=== PATIENT | female | born 1985 | race Caucasian/White ===

== ENCOUNTER → 2016-04-30 | Outpatient (CLI) | payer OTHER | LOC: OD 09:48 | PROVIDERS: ATTEND Obstetrics & Gynecology | DX: R09.81 Nasal congestion (principal); M79.1 Myalgia; R05 Cough | CPT/HCPCS: 87070; 87077; 87804; 87880 ==

== ENCOUNTER 2019-12-20 23:38 | Emergency (ER) | payer SELFPAY ==
[2019-12-21 00:42] LABS: APPEARANCE,URINE SLIGHTLY-CLOUDY; BILIRUBIN,URINE NEGATIVE (NEGATIVE); COLOR,URINE STRAW; GLUCOSE, URINE NEGATIVE (NEGATIVE); KETONES,URINE NEGATIVE (NEGATIVE); LEUKOCYTE ESTERASE,URINE MODERATE (NEGATIVE); NITRITE,URINE NEGATIVE (NEGATIVE); PROTEIN,URINE NEGATIVE (NEGATIVE); UROBILINOGEN,URINE NEGATIVE mg/dL (<2.0)
--- NOTE | 2019-12-21 00:55 | ER Document Report ---
ED Medical Screen (RME) - General Chief Complaint: OB Problem (<20wks) Stated Complaint: VAGINAL BLEEDING-8 WEEKS PREG Time Seen by Provider: 12/21/19 00:51 Primary Care Provider: WESLY SWANSON ARNP [Primary Care Provider] - Follow up as needed Notes: HPI: 34-year-old female who is a G4, at approximately 8 weeks 3 days gestation by dates who follows at the health department presenting for vaginal bleeding tonight. Has had some intermittent pelvic cramping tonight and when she went to the bathroom this evening wiped and saw bright red blood. No clots. Has not yet had ultrasound imaging. PHYSICAL EXAMINATION: exam deferred in triage. No tenderness on palpation across the pelvis. I have greeted and performed a rapid initial assessment of this patient. A comprehensive ED assessment and evaluation of the patient, analysis of test results and completion of medical decision making process will be conducted by an additional ED providers. TRAVEL OUTSIDE OF THE [place] IN LAST 30 DAYS: No - Related Data Allergies/Adverse Reactions: No Known Drug Allergies Allergy (Mild, Verified 11/26/11 08:26) Bee stings Allergy (Unknown, Uncoded 10/01/11 12:29) Home Medications: vitamins Past Medical History - Past Medical History Cardiac Medical History: Denies: Hx Coronary Artery Disease, Hx Heart Attack, Hx Hypertension Pulmonary Medical History: Denies: Hx Asthma, Hx Bronchitis, Hx COPD, Hx Pneumonia Neurological Medical History: Denies: Hx Cerebrovascular Accident, Hx Seizures Musculoskeltal Medical History: Denies Hx Arthritis Past Surgical History: Reports: Hx Appendectomy. Denies: Hx Hysterectomy, Hx Pacemaker - Immunizations Hx Diphtheria, Pertussis, Tetanus Vaccination: Yes Physical Exam - Vital signs Vitals: Temp Pulse Resp BP Pulse Ox 98.2 F 82 16 123/76 99 12/20/19 23:59 12/20/19 23:59 12/20/19 23:59 12/20/19 23:59 12/20/19 23:59 Course - Vital Signs Vital signs: Temp Pulse Resp BP Pulse Ox 98.2 F 82 16 123/76 99 12/20/19 23:59 12/20/19 23:59 12/20/19 23:59 12/20/19 23:59 12/20/19 23:59 - Laboratory Laboratory results interpreted by me: 12/21/19 00:05 Urine Blood LARGE H Ur Leukocyte Esterase MODERATE H Urine HCG, Qual POSITIVE H Doctor's Discharge - Discharge Referrals: WESLY SWANSON ARNP [Primary Care Provider] - Follow up as needed
[2019-12-21 01:23] LABS: ABSOLUTE BASOPHILS # (AUTO) 0.1 10^3/uL (0.0-0.2); ABSOLUTE EOSINOPHILS # (AUTO) 0.6 10^3/uL (0.0-0.6); ABSOLUTE LYMPHOCYTES (AUTO) 2.5 10^3/uL (0.5-4.7); ABSOLUTE MONOCYTES (AUTO) 0.6 10^3/uL (0.1-1.4); ABSOLUTE NEUT (AUTO) 6.5 10^3/uL (1.7-8.2); BASOPHILS % (AUTO) 0.8 % (0-2); EOSINOPHILS % (AUTO) 6.1 % (0-6); HEMATOCRIT 38.5 % (36.0-47.0); HEMOGLOBIN 13.1 g/dL (12.0-15.5); LYMPHOCYTES % (AUTO) 24.1 % (13-45); MEAN CORPUSCULAR HEMOGLOBIN 29.5 pg (27.0-33.4); MEAN CORPUSCULAR VOLUME 87 fl (80-97); MONOCYTES % (AUTO) 5.9 % (3-13); PLATELET COUNT 337 10^3/uL (150-450); RED BLOOD COUNT 4.44 10^6/uL (3.72-5.28); RED CELL DISTRIBUTION WIDTH 13.6 % (11.5-14.0); SEGMENTED NEUTROPHILS % (AUTO) 63.1 % (42-78); TOTAL CELLS COUNTED % (AUTO) 100 %; WHITE BLOOD COUNT 10.3 10^3/uL (4.0-10.5)
[2019-12-21 02:00] LABS: ALBUMIN 4.1 g/dL (3.5-5.0); ALKALINE PHOSPHATASE 60 U/L (38-126); ANION GAP 9 (5-19); ASPARTATE AMINO TRANSFERASE 27 U/L (14-36); BILIRUBIN,DIRECT 0.2 mg/dL (0.0-0.4); BILIRUBIN,TOTAL 0.6 mg/dL (0.2-1.3); BLOOD UREA NITROGEN 13 mg/dL (7-20); CALCIUM 9.5 mg/dL (8.4-10.2); CARBON DIOXIDE 25 mmol/L (22-30); CHLORIDE 104 mmol/L (98-107); GLUCOSE 107 mg/dL (75-110); POTASSIUM 4.6 mmol/L (3.6-5.0); TOTAL PROTEIN 6.7 g/dL (6.3-8.2)
--- NOTE | 2019-12-21 03:22 | RADIOLOGY REPORT (SQ) ---
FIRST TRIMESTER OBSTETRIC ULTRASOUND: 12/21/2019 2:19 AM CDT COMPARISON: None available HISTORY: 34-year old patient with concern for miscarriage or demise. TECHNIQUE: Multiple sierra scale and color Doppler images of the pelvis were obtained transvaginally. FINDINGS: The uterus measures 8.7 x 5.9 x 4.4 cm. A single gestational sac is seen within the uterus. The sac contains both a yolk sac and an embryo. The crown-rump length measures 0.48 cm corresponding to 6 weeks and 1 day(s). Cardiac motion was seen, though the exact measurement is difficult to detect. Perigestational hemorrhage is seen encompassing 25-50% of the sac surface. The cervix measures 3.3 cm in length. The right and left ovaries are normal in size and sonographic appearance. The right ovary measures 2.4 x 1.1 x 1.2 cm. The left ovary measures 2.8 x 1.3 x 1.7 cm. Normal arterial waveforms were obtained from both ovaries. No free fluid is seen in the cul-de-sac. IMPRESSION: Single live intrauterine at 6 weeks and 1 day(s) consistent with an estimated due date of 08/14/2020. This is different than the prior estimated due date of 07/29/2020 by last menstrual period. The exact cardiac heart rate was not detectable, though cardiac motion was noted. Obstetric follow up for routine care should be performed.
--- NOTE | 2019-12-21 07:53 | ER Document Report ---
ED General - General Chief Complaint: OB Problem (<20wks) Stated Complaint: VAGINAL BLEEDING-8 WEEKS PREG Time Seen by Provider: 12/21/19 00:51 Primary Care Provider: WESLY SWANSON ARNP [NO LOCAL MD] - Follow up as needed TRAVEL OUTSIDE OF THE [place] IN LAST 30 DAYS: No - HPI Notes: Chief complaint: Vaginal spotting in early HPI: 34-year-old female 4 para 2 AB 1 presents for evaluation of vaginal spotting within the last 12 hours. No cramping. No nausea, vomiting, fever, chills or dysuria. No care during this . - Related Data Allergies/Adverse Reactions: No Known Drug Allergies Allergy (Mild, Verified 11/26/11 08:26) Bee stings Allergy (Unknown, Uncoded 10/01/11 12:29) Home Medications: vitamins Past Medical History - General Information source: Patient, [facility] Records - Social History Smoking Status: Never Smoker Frequency of alcohol use: None Drug Abuse: None Lives with: Family Family History: Reviewed & Not Pertinent - Past Medical History Cardiac Medical History: Denies: Hx Coronary Artery Disease, Hx Heart Attack, Hx Hypertension Pulmonary Medical History: Denies: Hx Asthma, Hx Bronchitis, Hx COPD, Hx Pneumonia Neurological Medical History: Denies: Hx Cerebrovascular Accident, Hx Seizures Musculoskeletal Medical History: Denies Hx Arthritis Past Surgical History: Reports: Hx Appendectomy. Denies: Hx Hysterectomy, Hx Pacemaker - Immunizations Hx Diphtheria, Pertussis, Tetanus Vaccination: Yes Review of Systems - Review of Systems Notes: Constitutional: Negative for fever. HENT: Negative for sore throat. Eyes: Negative for visual changes. Cardiovascular: Negative for chest pain. Respiratory: Negative for shortness of breath. Gastrointestinal: Negative for abdominal pain, vomiting or diarrhea. Genitourinary: As per HPI. Musculoskeletal: Negative for back pain. Skin: Negative for rash. Neurological: Negative for headaches, weakness or numbness. 10 point ROS negative except as marked above and in HPI. Physical Exam - Vital signs Vitals: Temp Pulse Resp BP Pulse Ox 98.2 F 82 16 123/76 99 12/20/19 23:59 12/20/19 23:59 12/20/19 23:59 12/20/19 23:59 12/20/19 23:59 - Notes Notes: GENERAL: Well-developed well-nourished female approximately stated age appearing in no acute distress. SKIN: Good turgor no rashes. HEAD: Normocephalic atraumatic. EYES: PERRLA. EOMI. Conjunctivae and sclerae clear. EARS: CANALS AND TMS CLEAR. NOSE: CLEAR. MOUTH: Moist mucosa. Good dentition. No stridor or edema. No drooling. NECK: Supple. No masses or thyromegaly. No adenopathy. Carotids 2+ without bruits. No JVD. BACK: Symmetrical without tenderness. CHEST: Respirations unlabored. Breath sounds clear and symmetrical. HEART: Regular rhythm. No murmur gallop or rub. ABDOMEN: Soft nontender without masses, organomegaly or rebound. Bowel sounds normally active. No bruits. PELVIC: Normal external genitalia. Small amount of brown vaginal discharge present. Cervix is soft without lesions in the office is closed. Uterus is enlarged consistent with dates. EXTREMITIES: No edema. No calf tenderness. Cap refill less than 1.5 seconds. Dorsalis pedis and posterior tibial pulses 3+ and symmetrical. NEUROLOGICAL: GCS 15. Alert and oriented x3. Normal gait. Fluent speech. Cranial nerves II through XII intact. Sensorimotor and cerebellar normal. Normal tone. PSYCHIATRIC: Appropriate affect. Course - Re-evaluation Re-evalutation: 12/21/19 08:24 Clinical findings consistent with threatened miscarriage. Patient is Rh- and has received RhoGam. Vaginal swabs were submitted to the lab. 12/21/19 08:25 Patient reassured as to current findings. Findings, clinical impression and plan of treatment have been discussed with patient/family. Understanding of current findings and recommendations has been acknowledged by them and there is agreement regarding disposition and follow-up. - Vital Signs Vital signs: Temp Pulse Resp BP Pulse Ox 98.2 F 79 14 117/63 99 12/21/19 08:30 12/21/19 08:30 12/21/19 08:30 12/21/19 08:30 12/21/19 08:30 - Laboratory Result Diagrams: 12/21/19 01:09 12/21/19 01:09 Laboratory results interpreted by me: 12/21/19 12/21/19 12/21/19 00:05 01:09 03:05 Eos % (Auto) 6.1 H Beta HCG, Quant 8481.70 H Urine Blood LARGE H Ur Leukocyte Esterase MODERATE H Urine HCG, Qual POSITIVE H - Diagnostic Test Radiology reviewed: Reports reviewed - Per radiologist: Normal IUP at 6 weeks 1 day EGA Discharge - Discharge Clinical Impression: Threatened miscarriage in early Condition: Stable Disposition: HOME, SELF-CARE Instructions: Threatened Miscarriage ([facility]) Additional Instructions: Your projected due date on the basis of current ultrasound is August 14, 2020. Follow-up with OB clinic at the health department. Referrals: WESLY SWANSON ARNP [NO LOCAL MD] - Follow up as needed
[2019-12-21 09:14] VITALS: BP 117/63
[2019-12-21 09:23] LABS: BACTERIA (WET MOUNT) 4+ BACTERIA SEEN; T.VAGINALIS (WET MOUNT) NO TRICHOMONAS SEEN; WBCS (WET MOUNT) FEW WBCS SEEN; YEAST (WET MOUNT) NO YEAST SEEN
[2019-12-21 10:50] LABS: CHLAM PCR NOT DETECTED (NOT DETECT)
== END 2019-12-21 09:35 | disposition home or self-care (01) ==
LOC: ER 23:38
DX: O20.0 Threatened abortion (principal); Z3A.01 Less than 8 weeks gestation of pregnancy; Z67.91 Unspecified blood type, Rh negative; Z91.030 Bee allergy status; Z79.899 Other long term (current) drug therapy
CPT/HCPCS: 99284; 96372; 86900; 86901; 36415; 87210; 86850; 84702; 83690; 85025; 81025; 80053; 81001; 87491; 87591; 76817; 93976; J2790

== ENCOUNTER → 2019-12-23 | Outpatient (CLI) | payer SELFPAY ==
--- NOTE | 2019-12-23 15:04 | RADIOLOGY REPORT (SQ) ---
EXAM DESCRIPTION: U/S [id number] TRNABD 1GES W/ODOP IMAGES COMPLETED DATE/TIME: 12/23/2019 2:32 pm REASON FOR STUDY: Z34.81 ENCOUNTER FOR SUPRVSN OF NORMAL , FIRST TRIMESTER Z34.81 ENCOUNTE R FOR SUPRVSN OF NORMAL , FIRST TRIM COMPARISON: None. TECHNIQUE: Transvaginal and transabdominal static and realtime grayscale images acquired of the pelv is. Additional selected spectral and color Doppler images recorded. All images stored on PACs. bHCG: Not available. CLINICAL DATES: LMP 10/23/2019 8 weeks 5 days LIMITATIONS: None. FINDINGS: FETUS: Single Living intrauterine . ULTRASOUND EGA: 6 weeks 4 days by questionable gestational sac size ULTRASOUND RYAN: 08/13/2020 EFW: Not applicable less than 20 weeks. CRL: pole is not seen. . FHR: pole is not seen. Beats per minute. SURVEY: pole is not seen. AMNIOTIC FLUID: Adequate amount. PLACENTA: Not yet developed due to early gestation. SUBCHORIONIC BLEED: No SIZE OF BLEED: Not applicable. UTERUS: No masses. No anomalies. CERVICAL LENGTH: 3.1 cm. Closed. RIGHT ADNEXA: Normal ovary with normal vascular flow. No adnexal free fluid. No adnexal masses. LEFT ADNEXA: Normal ovary with normal vascular flow. No adnexal free fluid. No adnexal masses. FREE FLUID: None. OTHER: No other significant finding. IMPRESSION: Questionable intrauterine gestation of 6 weeks 4 days. pole is not yet seen. Fol low-up as clinically indicated. Trimester of : First trimester - 0 to 13 weeks. TECHNICAL DOCUMENTATION: JOB ID: [id number] 2010 [employer]- All Rights Reserved rev Reading location - IP/workstation name: [email or web address]
== END ==
LOC: RAD 13:41
PROVIDERS: ATTEND Nurse Practitioner Family
DX: Z34.81 Encounter for supervision of other normal pregnancy, first trimester (principal); Z3A.01 Less than 8 weeks gestation of pregnancy
CPT/HCPCS: 76801

== ENCOUNTER 2019-12-25 19:30 | Emergency (ER) | payer SELFPAY ==
--- NOTE | 2019-12-25 20:17 | ER Document Report ---
ED Medical Screen (RME) - General Chief Complaint: Vag Bleeding, +preg <12wks Stated Complaint: VAGINAL BLEEDING-6 WEEKS PREG Time Seen by Provider: 12/25/19 20:09 Mode of Arrival: Ambulatory Information source: Patient Notes: HPI; 34-year-old female who states she is approximately 6 weeks presents to the emergency room complaining of worsening vaginal bleeding with clots and cramping that started on Friday. Patient states she was seen here was told she had a normal ultrasound. Follow-up with health department on states her quant was not doubling but she did not get the exact numbers. Patient also states she had an ultrasound on but she did not get the results of that as of yet. She was given RhoGam on Friday as she is Rh-. She is a 4 para 2. PE: Alert and oriented x3. Moderate distress noted. Lungs: Clear to auscultation without rales, rhonchi, wheezes. Heart: Regular rate and rhythm without murmurs, rubs, gallops. I have greeted and performed a rapid initial assessment of this patient. A comprehensive ED assessment and evaluation of the patient, analysis of test results and completion of the medical decision making process will be conducted by additional ED providers. I have specifically instructed the patient or family members with the patient to immediately return to any nursing staff should anything change in the patient's condition or with their chief complaint. TRAVEL OUTSIDE OF THE [place] IN LAST 30 DAYS: No - Related Data Allergies/Adverse Reactions: No Known Drug Allergies Allergy (Mild, Verified 11/26/11 08:26) Bee stings Allergy (Unknown, Uncoded 10/01/11 12:29) Home Medications: Past Medical History - Social History Chew tobacco use (# tins/day): No Frequency of alcohol use: None Drug Abuse: None - Past Medical History Cardiac Medical History: Denies: Hx Coronary Artery Disease, Hx Heart Attack, Hx Hypertension Pulmonary Medical History: Denies: Hx Asthma, Hx Bronchitis, Hx COPD, Hx Pneumonia Neurological Medical History: Denies: Hx Cerebrovascular Accident, Hx Seizures Musculoskeltal Medical History: Denies Hx Arthritis Past Surgical History: Reports: Hx Appendectomy. Denies: Hx Hysterectomy, Hx Pacemaker - Immunizations Hx Diphtheria, Pertussis, Tetanus Vaccination: Yes Physical Exam - Vital signs Vitals: Temp Pulse Resp BP Pulse Ox 97.9 F 90 12 146/77 H 100 12/25/19 19:46 12/25/19 19:46 12/25/19 19:46 12/25/19 19:46 12/25/19 19:46 Course - Vital Signs Vital signs: Temp Pulse Resp BP Pulse Ox 97.9 F 90 12 146/77 H 100 12/25/19 19:46 12/25/19 19:46 12/25/19 19:46 12/25/19 19:46 12/25/19 19:46
[2019-12-25 20:52] LABS: ABSOLUTE BASOPHILS # (AUTO) 0.1 10^3/uL (0.0-0.2); ABSOLUTE EOSINOPHILS # (AUTO) 0.8 10^3/uL (0.0-0.6); ABSOLUTE LYMPHOCYTES (AUTO) 2.6 10^3/uL (0.5-4.7); ABSOLUTE MONOCYTES (AUTO) 0.6 10^3/uL (0.1-1.4); ABSOLUTE NEUT (AUTO) 5.3 10^3/uL (1.7-8.2); EOSINOPHILS % (AUTO) 8.5 % (0-6); HEMATOCRIT 39.1 % (36.0-47.0); HEMOGLOBIN 13.5 g/dL (12.0-15.5); LYMPHOCYTES % (AUTO) 27.8 % (13-45); MEAN CORPUSCULAR HEMOGLOBIN 29.6 pg (27.0-33.4); MEAN CORPUSCULAR HGB CONC 34.5 g/dL (32.0-36.0); MEAN CORPUSCULAR VOLUME 86 fl (80-97); MONOCYTES % (AUTO) 5.9 % (3-13); RED BLOOD COUNT 4.56 10^6/uL (3.72-5.28); RED CELL DISTRIBUTION WIDTH 13.6 % (11.5-14.0); SEGMENTED NEUTROPHILS % (AUTO) 56.8 % (42-78); TOTAL CELLS COUNTED % (AUTO) 100 %; WHITE BLOOD COUNT 9.3 10^3/uL (4.0-10.5)
[2019-12-25 21:08] LABS: ALBUMIN 4.8 g/dL (3.5-5.0); ALKALINE PHOSPHATASE 72 U/L (38-126); ANION GAP 9 (5-19); ASPARTATE AMINO TRANSFERASE 33 U/L (14-36); BILIRUBIN,DIRECT 0.2 mg/dL (0.0-0.4); BILIRUBIN,TOTAL 0.9 mg/dL (0.2-1.3); BLOOD UREA NITROGEN 6 mg/dL (7-20); CALCIUM 10.3 mg/dL (8.4-10.2); CARBON DIOXIDE 25 mmol/L (22-30); CHLORIDE 103 mmol/L (98-107); GLUCOSE 94 mg/dL (75-110); POTASSIUM 3.8 mmol/L (3.6-5.0); TOTAL PROTEIN 7.9 g/dL (6.3-8.2)
[2019-12-25 21:10] LABS: PLATELET COUNT 321 10^3/uL (150-450)
--- NOTE | 2019-12-25 22:10 | RADIOLOGY REPORT (SQ) ---
EXAM DESCRIPTION: US TRANSVAGINAL COMPLETED DATE/TME: 12/25/2019 20:14 CLINICAL HISTORY: 34 years, Female, vaginal bleeding COMPARISON: December 21, 2019 TECHNIQUE: Multiple grayscale and Doppler images of the pelvis were obtained. Transabdominal and transvaginal imaging were performed LIMITATIONS: None. FINDINGS: There is a single, live, intrauterine gestation with a crown-rump length of 3 mm, 6 weeks 0 days estimated age and estimated due date of August 19, 2020. There is bradycardia with a heart rate of 71 bpm. 9 x 6 x 4 mm subchorionic hemorrhage previously measured approximately 8 x 4 x 3 mm. A yolk sac is identified. Normal amount of amniotic fluid is noted. Cervical length is 3.1 cm and the internal os is closed. No adnexal mass is identified. Right ovary is scattered by bowel gas, however. IMPRESSION: Single, live, intrauterine gestation is noted, however there is bradycardia with a heart rate of 71 bpm. There is no significant interval growth since the December 21, 2019 ultrasound. Subchorionic hemorrhage is slightly larger than before, currently measuring up to 9 mm as compared 8 mm previously. Close follow-up is recommended to evaluate viability. copyright 2011 [employer]- All Rights Reserved
--- NOTE | 2019-12-25 23:36 | ER Document Report ---
ED General - General Chief Complaint: Vag Bleeding, +preg <12wks Stated Complaint: VAGINAL BLEEDING-6 WEEKS PREG Time Seen by Provider: 12/25/19 20:09 Primary Care Provider: ALEX YANES MD [ACTIVE PROVISIONAL STAFF] - 12/29/19 (Call the office Friday to schedule a follow-up appointment on 12/29/[address] Yanes to have a ultrasound and level done.) Mode of Arrival: Ambulatory TRAVEL OUTSIDE OF THE [place] IN LAST 30 DAYS: No - HPI Context: This is a 34-year-old female, aborta 1, presenting with complaint of worsening vaginal bleeding. Patient was seen here 4 days ago with the complaint of vaginal bleeding. Patient had a ultrasound done along with a ABO Rh and blood work done including a serum quantitative hCG. Patient was diagnosed with a threatened miscarriage and was instructed to follow-up with her provider at the health department. Patient returns tonight to this emergency department because she states that she is having more vaginal bleeding. The patient is states she is seen a small amount of dark red clotted blood and is having some intermittent cramping. Patient denies alleviating factors or aggravating factors. Patient denies having intercourse and states she is on pelvic rest. Patient was given 300 mcg of RhoGam during her last visit because she is Rh-. Patient states her bleeding started again approximately 2 hours prior to arrival. Patient describes the cramping as sharp but mild and intermittent. Associated symptoms: Other - See HPI Exacerbated by: Other Relieved by: Other - See HPI see HPI - Related Data Allergies/Adverse Reactions: No Known Drug Allergies Allergy (Mild, Verified 11/26/11 08:26) Bee stings Allergy (Unknown, Uncoded 10/01/11 12:29) Home Medications: Past Medical History - General Information source: Patient - Social History Smoking Status: Never Smoker Chew tobacco use (# tins/day): No Frequency of alcohol use: None Drug Abuse: None Family History: Reviewed & Not Pertinent - Past Medical History Cardiac Medical History: Denies: Hx Coronary Artery Disease, Hx Heart Attack, Hx Hypertension Pulmonary Medical History: Denies: Hx Asthma, Hx Bronchitis, Hx COPD, Hx Pneumonia Neurological Medical History: Denies: Hx Cerebrovascular Accident, Hx Seizures Musculoskeletal Medical History: Denies Hx Arthritis Past Surgical History: Reports: Hx Appendectomy. Denies: Hx Hysterectomy, Hx Pacemaker - Immunizations Hx Diphtheria, Pertussis, Tetanus Vaccination: Yes Review of Systems - Review of Systems Constitutional: No symptoms reported EENT: No symptoms reported Cardiovascular: No symptoms reported Respiratory: No symptoms reported Gastrointestinal: No symptoms reported Genitourinary: See HPI Female Genitourinary: No symptoms reported Musculoskeletal: No symptoms reported Skin: No symptoms reported Hematologic/Lymphatic: No symptoms reported Neurological/Psychological: No symptoms reported -: Yes All other systems reviewed and negative Physical Exam - Vital signs Vitals: Temp Pulse Resp BP Pulse Ox 97.9 F 90 12 146/77 H 100 12/25/19 19:46 12/25/19 19:46 12/25/19 19:46 12/25/19 19:46 12/25/19 19:46 - Notes Notes: CONSTITUTIONAL [Vital signs reviewed, Patient appears comfortable, Alert and oriented X 3, Normal stature.] HEAD [Atraumatic, Normocephalic.] EYES [Eyes are normal to inspection, No discharge from eyes, Extraocular muscles intact, Sclera are normal, Conjunctiva are normal.] NECK [Normal ROM, No jugular venous distention, No meningeal signs, no carotid bruit.] RESPIRATORY CHEST [Chest is nontender, Breath sounds normal, No respiratory distress.] CARDIOVASCULAR [RRR, No murmurs, Normal S1 S2, No rub, No gallop.] ABDOMEN [Abdomen is nontender, No pulsatile masses, No other masses, Bowel sounds nor mal, No distension, No peritoneal signs, No hernias.] Exam deferred BACK [There is no CVA Tenderness, There is no tenderness to palpation, Normal inspection.] UPPER EXTREMITY [Inspection normal, No cyanosis, No clubbing, No edema, 2+ radial pulses.] LOWER EXTREMITY [Inspection normal, No cyanosis, No clubbing, No edema, No calf tenderness, 2+ femoral pulses.] NEURO [No focal motor deficits, No focal sensory deficits, Speech normal.] SKIN [Skin is warm, Skin is dry, Skin is normal color.] LYMPHATIC [No adenopathy in neck.] PSYCHIATRIC [Normal affect. ] Course - Re-evaluation Re-evalutation: 12/25/19 23:42 Results of ED MSE discussed with patient. All questions were answered prior to discharge. Emergency signs and symptoms, reasons to return to the emergency department discussed with patient. - Vital Signs Vital signs: Temp Pulse Resp BP Pulse Ox 97.9 F 90 12 146/77 H 100 12/25/19 19:46 12/25/19 19:46 12/25/19 19:46 12/25/19 19:46 12/25/19 19:46 - Laboratory Result Diagrams: 12/25/19 20:45 12/25/19 20:45 Laboratory results interpreted by me: 12/25/19 12/25/19 20:45 20:45 Eos % (Auto) 8.5 H Absolute Eos (auto) 0.8 H BUN 6 L Calcium 10.3 H ALT 43 H Beta HCG, Quant 42106.00 H - Diagnostic Test Radiology reviewed: Reports reviewed - Consults Dr. Alex Yanes, SHAREHOLDER Time consulted: 23:29 - Dr. Yanes stated that additional RhoGam is unnecessary at this time. Results of repeat ultrasound, quant, patient's blood type, prior dose of RhoGam all discussed with Dr. portillo. Dr. Rasmussen stated that she will see the patient in follow-up in 4 days on 12/29/2019 to do a ultrasound, serum quantitative hCG and evaluate if the patient needs additional RhoGam at the time of the appointment.. Reason for consultation: 12/25/19 23:43 Vaginal bleeding in early with Rh- patient Consulted provider: follow-up in office Discharge - Discharge Clinical Impression: Threatened miscarriage in early Condition: Stable Disposition: HOME, SELF-CARE Instructions: Bleeding During Early ([facility]), Threatened Miscarriage ([facility]) Additional Instructions: Return to the Emergency Department without delay if any worse. HOME CARE INSTRUCTIONS & INFORMATION: Thank you for choosing us for your medical needs. We hope you're satisfied with the care you received. After you leave, you must properly care for your problem and, at the same time, observe its progress. Any condition can change. Some illnesses can change rapidly over hours or days. If your condition worsens, return to the Emergency Department or see your physician promptly. ABOUT YOUR X-RAYS AND EKG'S: If you had an EKG or X-rays taken, they have been read by the Emergency Physician. The X-rays and EKG's will also be read by a Radiologist or [employer] within 24 hours. If discrepancies are noted, you will be notified by telephone. Please be certain the ED has a correct telephone number & address where you can be reached. Also, realize that some fractures or abnormalities do not show up on initial X-rays. If your symptoms continue, see your physician. ABOUT YOUR LABORATORY TEST: If you had laboratory tests, the results have been reviewed by the Emergency Physician. Some test results (for example cultures) may not be available for several days. You will be contacted if any test result shows you need additional treatment. Please be certain the ED has a correct telephone number and address where you can be reached. ABOUT YOUR MEDICATIONS: You will receive instructions on how to take your medicine on the prescription label you receive. Additional information may be provided by the Pharmacy. If you have questions afterwards, call the ED for clarification or further instructions. Some prescribed medications may cause drowsiness. Do not perform tasks such as driving a car or operating machinery without consulting your Pharmacist. If you feel you need a refill of pain medication, your condition will need re-evaluation. Please do not call for a refill of any medication. ABOUT YOUR SIGNATURE: Signature of this document acknowledges to followin. Understanding that you received emergency treatment and that you may be released before al medical problems are known or treated. Please be certain the ED has a correct phone number & address where you can be reached. 2. Acknowledgement that you will arrange for follow-up care as recommended. 3. Authorization for the Emergency Physician to provide information to your follow-up Physician in order to maximize your care. AT ANY TIME, IF YOUR SYMPTOMS CHANGE SIGNIFICANTLY OR WORSEN OR YOU DEVELOP NEW SYMPTOMS, RETURN TO THE EMERGENCY DEPARTMENT IMMEDIATELY FOR RE-EVALUATION. OUR GOAL IS TO PROVIDE EXCELLENT MEDICAL CARE! WE HOPE THAT WE HAVE MET YOUR EXPECTATIONS DURING YOUR EMERGENCY DEPARTMENT VISIT AND THAT YOU FEEL YOU HAVE RECEIVED EXCELLENT CARE! Referrals: ALEX YANES MD [ACTIVE PROVISIONAL STAFF] - 12/29/19 (Call the office Friday to schedule a follow-up appointment on 12/29/[address] Yanes to have a ultrasound and level done.)
[2019-12-25 23:44] VITALS: BP 135/78
== END 2019-12-25 23:45 | disposition home or self-care (01) ==
LOC: ER 19:30
DX: O20.0 Threatened abortion (principal); Z3A.01 Less than 8 weeks gestation of pregnancy
CPT/HCPCS: 36415; 76817; 80053; 84702; 85025; 93976; 99284

== ENCOUNTER 2020-01-12 05:28 | Day surgery (SDC) | payer MEDICAID ==
[2020-01-12 06:25] LABS: APPEARANCE,URINE SLIGHTLY-CLOUDY; BILIRUBIN,URINE NEGATIVE (NEGATIVE); COLOR,URINE YELLOW; GLUCOSE, URINE NEGATIVE (NEGATIVE); KETONES,URINE NEGATIVE (NEGATIVE); LEUKOCYTE ESTERASE,URINE NEGATIVE (NEGATIVE); NITRITE,URINE NEGATIVE (NEGATIVE); PROTEIN,URINE NEGATIVE (NEGATIVE); URINE SPECIFIC GRAVITY 1.026; UROBILINOGEN,URINE NEGATIVE mg/dL (<2.0)
[2020-01-12 06:36] LABS: ABSOLUTE EOSINOPHILS # (AUTO) 0.5 10^3/uL (0.0-0.6); ABSOLUTE LYMPHOCYTES (AUTO) 1.2 10^3/uL (0.5-4.7); ABSOLUTE MONOCYTES (AUTO) 0.4 10^3/uL (0.1-1.4); BASOPHILS % (AUTO) 0.5 % (0-2); EOSINOPHILS % (AUTO) 12.7 % (0-6); HEMOGLOBIN 12.5 g/dL (12.0-15.5); MEAN CORPUSCULAR HEMOGLOBIN 29.2 pg (27.0-33.4); MEAN CORPUSCULAR HGB CONC 33.8 g/dL (32.0-36.0); MEAN CORPUSCULAR VOLUME 86 fl (80-97); MONOCYTES % (AUTO) 10.4 % (3-13); PLATELET COUNT 238 10^3/uL (150-450); RED CELL DISTRIBUTION WIDTH 13.7 % (11.5-14.0); SEGMENTED NEUTROPHILS % (AUTO) 48.4 % (42-78); TOTAL CELLS COUNTED % (AUTO) 100 %; WHITE BLOOD COUNT 4.1 10^3/uL (4.0-10.5)
[2020-01-12] MEDS ORDERED: FENTANYL CITRATE INJ/PF 100 MCG/2 ML AMPUL ONE (06:52)
[2020-01-12] MEDS ORDERED: MIDAZOLAM 2 MG/2 ML INJ ONE (06:52)
[2020-01-12] MEDS ORDERED: PROPOFOL INJ 200 MG/20 ML VIAL IV ONE (06:52)
[2020-01-12] MEDS ORDERED: DEXMEDETOMIDINE INJ 80 MCG/20 ML VIAL IV ONE (07:03)
[2020-01-12] MEDS ORDERED: DIPHENHYDRAMINE HCL 50 MG/ML VIAL IV PRN (07:42)
[2020-01-12] MEDS ORDERED: FENTANYL CITRATE INJ/PF 100 MCG/2 ML AMPUL IV PRN ×3 (07:42)
[2020-01-12] MEDS ORDERED: MORPHINE SULFATE 10 MG/ML INJ IV PRN (07:42)
[2020-01-12] MEDS ORDERED: PROMETHAZINE HCL INJ 25 MG/1 ML VIAL IV PRN ×2 (07:42)
[2020-01-12] MEDS ORDERED: MEPERIDINE HCL/PF INJ 25 MG/1 ML DISP.SYRIN IV PRN (07:42)
[2020-01-12] MEDS ORDERED: OXYCODONE-ACETAMINOPHEN 5-325 MG TABLET PO PRN ×4 (07:42→08:05)
[2020-01-12] MEDS ORDERED: ONDANSETRON HCL INJ/PF 4 MG/2 ML SDV IV PRN (07:42)
[2020-01-12] MEDS ORDERED: IBUPROFEN 800 MG TABLET PO PRN (08:05)
[2020-01-12] MEDS ORDERED: RINGERS SOLUTION,LACTATED 1,000 ML IV PRN (08:05)
[2020-01-12] MEDS ORDERED: KETOROLAC TROMETHAMINE INJ/PF 30 MG/1 ML SDV IV PRN (08:05)
--- NOTE | 2020-01-12 08:05 | Operative Report ---
Operative Report DATE OF SURGERY: 01/12/20 PREOPERATIVE DIAGNOSIS: Missed AB at 5 weeks and 3 days POSTOPERATIVE DIAGNOSIS: Same OPERATION: Suction D&C SURGEON: COLT CARMONA ANESTHESIA: LMAC TISSUE REMOVED OR ALTERED: Products of conception COMPLICATIONS: None ESTIMATED BLOOD LOSS: 50 cc INTRAOPERATIVE FINDINGS: Uterus sounded to 12-1/2 cm PROCEDURE: Patient was taken to the operating room prepared and draped in a normal sterile fashion in a dorsal lithotomy position. An in and out cath was performed of approximately 30 cc of clear urine. Sterile speculum was placed into the vagina and the cervix was prepped with Betadine and grasped on the anterior lip with a single-tooth tenaculum. The uterus was sounded to the above findings. The cervix was dilated to accommodate an 8 mm curved curette. The curved curette was passed x3 under suction and a small amount of decidual type tissue was removed. Curettage was performed using Kevorkian curette. Good great was noted 360 degrees around. More pass with the suction curette no further tissue. The procedure was then concluded Metzenbaums were removed sponge lap and needle counts were correct x2. She was taken to recovery in stable condition
[2020-01-12] MEDS ORDERED: KETOROLAC TROMETHAMINE INJ/PF 30 MG/1 ML SDV ONE (08:07)
--- NOTE | 2020-01-12 08:11 | Discharge Summary ---
Discharge Summary (SDC) - Discharge Final Diagnosis: Missed AB at 5 weeks and 3 days Date of Surgery: 01/12/20 Discharge Date: 01/12/20 Condition: Stable Prescriptions: Oxycodone HCl/Acetaminophen [Percocet 5-325 mg Tablet] 1 tab PO Q4HP PRN #20 tablet PRN Reason: Doxycycline Hyclate 100 mg PO BID #10 tablet. Ibuprofen [Motrin 800 mg Tablet] 800 mg PO NOW PRN #60 tablet PRN Reason: Discharge Diet: As Tolerated Respiratory Treatments at Home: Deep Breathing/Coughing Discharge Activity: Balance Activity w/Rest, No Driving, Pelvic Rest, No tub bath, Walk Frequently Home Care Assistance: None Needed Report the Following to Your Physician Immediately: Shortness of Breath, Nausea, Fever over 101 Degrees
[2020-01-12 10:00] VITALS: BP 101/57
== END 2020-01-12 09:35 | disposition home or self-care (01) ==
LOC: OROUT 05:28
PROVIDERS: ATTEND Obstetrics & Gynecology
DX: O02.1 Missed abortion (principal); Z03.818 Encounter for observation for suspected exposure to other biological agents ruled out; Z90.49 Acquired absence of other specified parts of digestive tract
CPT/HCPCS: 36415; 85025; 87635; 81001; 88305 ×2; 01965; 59820; J2250; J3010; J1885; J2704; J3490; C9803; 1965

== ENCOUNTER → 2020-01-27 | Outpatient (CLI) | payer MEDICAID | LOC: OD 12:03 | PROVIDERS: ATTEND Obstetrics & Gynecology | DX: O02.1 Missed abortion (principal) | CPT/HCPCS: 36415; 84702 ==